=== PATIENT | male | born 1985 | race Caucasian/White ===

== ENCOUNTER 2016-12-25 16:17 | Emergency (ER) | payer SELFPAY ==
[~2016-12-25] VITALS: Ht 188 cm; Wt 79.4 kg
--- NOTE | 2016-12-25 17:01 | ED General ---
General Chief Complaint: General Problems/Pain Stated Complaint: POSS EXPOSURE Nursing Triage Note: AMBULATED TO ROOM 06 WITHOUT DIFFICULTY. STATES HE WAS DRINKING A BEER THAT HAD A SMASHED TICK IN IT AND HE SWALLOWED THE TICK. STATES HE WANTS TESTED FOR ANY DISEASE THE TICK COULD HAVE DUE TO HAVING ANOTHER HUMANS BLOOD IN IT. Nursing Sepsis Screen: No Definite Risk Source of Information: Patient Exam Limitations: No Limitations History of Present Illness Time Seen by Provider: 17:01 Initial Comments 31 yo male patient presents to the ED with c/o drinking a beer today that had a tick smashed in the lid. Patient states it was a Pashto beer and unsure where the beer was packaged. Patient is concerned that he may have gotten Lyme disease, HIV, or hepatitis from the beer if any blood dripped into the beer from the tick being smashed. Patient states he is passing through [place] on his way to [place] for a "gig". Leaves [place] tomorrow morning. Timing/Duration: 1-3 Hours Allergies and Home Medications Allergies Coded Allergies: Penicillins (Verified Allergy, Unknown, 12/25/16) Home Medications No Active Prescriptions or Reported Meds Constitutional: No fever, No malaise, No weakness EENTM: no symptoms reported Respiratory: no symptoms reported Cardiovascular: no symptoms reported Gastrointestinal: No abdominal pain, No diarrhea, No nausea, No vomiting Musculoskeletal: no symptoms reported Skin: no symptoms reported All Other Systems Reviewed Negative Unless Noted: Yes (Negative excepted noted.) Past Tbgdmyt-Mbsazo-Hssacd Hx Patient Social History Alcohol Use: Occasionally Uses Recreational Drug Use: No Smoking Status: Current Everyday Smoker Recent Foreign Travel: No Contact w/Someone Who Travel: No Recent Infectious Disease Expo: No Surgeries HX Surgeries: Yes Surgeries: Tonsillectomy Respiratory Hx Respiratory Disorders: Yes Respiratory Disorders: Asthma (childhood asthma) Cardiovascular Hx Cardiac Disorders: No Neurological Hx Neurological Disorders: No Gastrointestinal Hx Gastrointestinal Disorders: No Reviewed Nursing Assessment Reviewed/Agree w Nursing PMH: Yes Family Medical History Significant Family History: No Pertinent Family Hx Physical Exam Vital Signs Vital Sign - Last 12Hours 12/25/16 16:20 Temp 98.0 Pulse 69 Resp 18 B/P (MAP) 127/85 Pulse Ox 99 Capillary Refill : Less Than 3 Seconds General Appearance: No Apparent Distress, WD/WN Neurologic/Psychiatric: Alert, Oriented x3, Normal Mood/Affect Skin: Normal Color, Warm/Dry, Tattoos/Piercings Progress/Results/Core Measures Results/Orders Vital Signs/I&O Vital Sign - Last 12Hours 12/25/16 12/25/16 16:20 17:48 Temp 98.0 98.0 Pulse 69 69 Resp 18 18 B/P (MAP) 127/85 Pulse Ox 99 99 Blood Pressure Mean: 99 Departure Communication Progress Notes Patient seen and evaluated. I have discussed with the patient that he should be tested at 6 wks, 12 wks, and 6 months for HIV and hepatitis. If any symptoms of tick borne illnesses, he is to see a provider for outpatient testing. Patient states he is leaving in the morning to go to [place] and then will travel back to [place] followed by [place]. 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 States he will f/u with a health department or ER when he gets to [place]. Impression Impression: Primary Impression: Well adult exam Additional Impression: Accidental ingestion of substance Qualified Codes: T65.91XA - Toxic effect of unspecified substance, accidental (unintentional), initial encounter Disposition: 01 HOME, SELF-CARE Condition: Improved Departure-Patient Inst. Decision time for Depature: 17:41 Referrals: NO,LOCAL PHYSICIAN (PCP/Family) Primary Care Physician Patient Instructions: NO INSTRUCTIONS GIVEN Add. Discharge Instructions: All discharge instructions reviewed with patient and/or family. Voiced understanding. Contact the [facility] Department ([phone]) first thing in the morning for recommendations and scheduled for outpatient testing. Consider contacting the Center for Disease Control ([phone] or 729-NSV-RDKY ) for information and recommendations. Follow-up at 6 wks, 12 wks, and 6 mos for testing as an outpatient (contact the nearest health department, urgent care, quick care, family physician, or emergency department for testing). Return to the emergency department for worsened symptoms or any other concerns. Scripts No Active Prescriptions or Reported Meds JOELLE MORLEY Dec 25, 2016 17:01
[2016-12-25 17:48] VITALS: BP 127/85
== END 2016-12-25 17:48 | disposition home or self-care (01) ==
LOC: ER 16:20
DX: T65.91XA Toxic effect of unspecified substance, accidental (unintentional), initial encounter (principal); J45.909 Unspecified asthma, uncomplicated; F17.200 Nicotine dependence, unspecified, uncomplicated
CPT/HCPCS: 99281